=== PATIENT | male | born 1965 | race Two or more races ===

== ENCOUNTER 2021-08-16 11:24 | Inpatient (IN) | payer MEDICAID, OTHER ==
[~2021-08-16] VITALS: Ht 167.6 cm; Wt 37.7 kg
[2021-08-16] MEDS ORDERED: cefTRIAXone 1GM/50ML D5W 50 ML IV ONE (11:45)
[2021-08-16] MEDS ORDERED: ACETAMINOPHEN 325 MG TAB PO ONE (11:49)
[2021-08-16 12:34] LABS: Basophils # (auto) 0 10 ^3/uL (0-0.2); Eosinophils # (auto) 0 10 ^3/uL (0-0.8); Lymphocytes # (auto) 0.2 10 ^3/uL (0.4-5.4); Monocytes # (auto) 0.5 10 ^3/uL (0-1.3); Neutrophils # (auto) 2.3 10 ^3/uL (1.6-8.6)
[2021-08-16 12:38] LABS: Eosinophils % (auto) 0.1 % (0.0-7.0); Hematocrit 26.4 % (41.0-53.0); Hemoglobin 8.8 g/dL (13.5-17.5); Lymphocytes % (auto) 5.5 % (10.0-50.0); Mean Corpuscular Hemoglobin 24.7 pg (28.0-32.0); Mean Corpuscular Hgb Conc. 33.5 g/dL (32.0-36.0); Mean Corpuscular Volume 73.8 fL (80.0-100.0); Monocytes % (auto) 17.7 % (0.0-12.0); Neutrophils % (auto) 75.7 % (37.0-80.0); Nucleated Red Blood Cells % 0.5 %; Red Blood Cells 3.57 10^6/uL (4.5-5.90); Red Cell Distribution Width 23.5 % (11.8-14.3)
[2021-08-16 12:39] LABS: Albumin 2.5 g/dL (3.4-5.0); Calcium 8.2 mg/dL (8.5-10.1); Potassium 4.3 mmol/L (3.5-5.1)
[2021-08-16 12:42] LABS: BUN/Creatinine Ratio 12.9
[2021-08-16] MEDS ORDERED: ZINC SULFATE 220mg CAP or TAB PO ONE (12:45)
[2021-08-16] MEDS ORDERED: AZITHROMYCIN 500MG/ 250ML 250 ML IV ONE (12:45)
[2021-08-16 12:58] LABS: CRP High Sensitivity 3.9 mg/dL (< 0.3)
[2021-08-16 14:03] LABS: Bilirubin, Total 0.4 mg/dL (0.2-1.0); Total Protein 6.5 g/dL (6.4-8.2)
[2021-08-16] MEDS ORDERED: NITROGLYCERIN 0.4 MG SL TAB SL PRN ×2 (17:15→19:30)
[2021-08-16] MEDS ORDERED: MORPHINE SULFATE INJECTION 2 MG/ML SYRG IV PRN ×2 (17:15→19:30)
[2021-08-16] MEDS ORDERED: METOCLOPRAMIDE HCL 5MG/ml INJ 2ml VIAL IV PRN (19:30)
[2021-08-16] MEDS ORDERED: REMDESIVIR PER PHARMACY 0 ML IV SCH (19:30)
[2021-08-16] MEDS: SODIUM CHLORIDE 0.9% 1,000 ML IV SCH (19:30)
[2021-08-16] MEDS ORDERED: DOCUSATE SOD 100 MG CAP PO PRN (19:30)
[2021-08-16] MEDS ORDERED: ALUM & MAG HYDROX-SIMETH LIQ(MAALOX) 30 ML PO PRN (19:30)
[2021-08-16] MEDS ORDERED: PANTOPRAZOLE 40 MG/10 ML VIAL INJ IV ONE (19:45)
[2021-08-16] MEDS ORDERED: PROCHLORPERAZINE MALEATE 10 MG TAB PO PRN (19:45)
[2021-08-16] MEDS ORDERED: CEFEPIME 1 GM in SODIUM CHL 0.9% 50 ML IV ONE (20:30)
[2021-08-16 21:00] LABS: % Iron Saturation 6.9 % (20-55)
[2021-08-16 21:12] LABS: Thyroid Stimulating Hormone 1.68 uIU/mL (0.358-3.74)
[2021-08-16] MEDS: ENOXAPARIN SOD 40 MG/0.4 ML SYRINGE SC SCH (22:00)
[2021-08-16] MEDS: ALBUTEROL SULF HFA 90MCG INH 200DOSE IN PRN (22:35)
[2021-08-16] MEDS: BUDESONIDE (INHALATION) 180 MCG IH IN SCH (22:35)
[2021-08-16 22:40] LABS: Urine Bacteria NONE SEEN /hpf (None Seen); Urine Blood Negative /uL (Negative); Urine WBC 2 /hpf (0 - 3)
[2021-08-16] MEDS: ACETAMINOPHEN 500 MG TAB PO PRN (22:48)
[2021-08-16] MEDS ORDERED: REMDESIVIR 200 MG in NS 210ml LOADING DOSE ADULT IV ONE (23:00)
[2021-08-16 23:53] VITALS: BP 105/63
[2021-08-17] MEDS ORDERED: ONDA-188 PO (01:05)
[2021-08-17] MEDS ORDERED: MORP1TAB14 PO (01:05)
[2021-08-17 05:00] VITALS: BP 102/66
[2021-08-17] MEDS: CEFEPIME 1 GM in SODIUM CHL 0.9% 50 ML IV SCH ×3 (06:03→21:19)
[2021-08-17 06:17] LABS: Hemoglobin 7.7 g/dL (13.5-17.5)
[2021-08-17 06:20] LABS: Hematocrit 23.1 % (41.0-53.0); Mean Corpuscular Hemoglobin 24.5 pg (28.0-32.0); Mean Corpuscular Hgb Conc. 33.1 g/dL (32.0-36.0); Mean Corpuscular Volume 73.9 fL (80.0-100.0); Red Blood Cells 3.13 10^6/uL (4.5-5.90)
[2021-08-17 06:33] LABS: Red Cell Distribution Width 23.7 % (11.8-14.3)
[2021-08-17 06:34] LABS: White Blood Cell 1.9 10^3/uL (4.4-10.8)
[2021-08-17 06:36] LABS: Basophils % (manual) 0 (0.0-2.0); Blast Cells 0; Eosinophils % (manual) 0 (0-7); Metamyelocytes % 0; Myelocytes % 0; Promyelocytes % 0; Reactive Lymphocytes 0
[2021-08-17 06:58] LABS: Albumin 2.2 g/dL (3.4-5.0); BUN/Creatinine Ratio 17.8; Calcium 8.4 mg/dL (8.5-10.1)
[2021-08-17 07:00] LABS: Bilirubin, Total 0.3 mg/dL (0.2-1.0); Total Protein 5.6 g/dL (6.4-8.2)
[2021-08-17 08:00] LABS: Band Neutrophils % (manual) 5; Lymphocytes % (manual) 16 (10.0-50.0); Monocytes % (manual) 14 (0-12)
[2021-08-17 08:56] VITALS: BP 120/81
[2021-08-17] MEDS: DexAMETHasone SOD PHOS 10MG/1ML VIAL INJ IV SCH (09:59)
[2021-08-17] MEDS: IVERMECTIN 3 MG TAB PO SCH (09:59)
[2021-08-17] MEDS: ZINC SULFATE 220mg CAP or TAB PO SCH (09:59)
[2021-08-17] MEDS: CHOLECALCIFEROL (VITD3) 2,000 UNIT CAP/TAB PO SCH (10:00)
[2021-08-17] MEDS: ASCORBIC ACID 1,000 MG TAB PO SCH (10:00)
[2021-08-17] MEDS: ENOXAPARIN SOD 40 MG/0.4 ML SYRINGE SC SCH ×2 (10:00→21:19)
[2021-08-17] MEDS: BUDESONIDE (INHALATION) 180 MCG IH IN SCH ×2 (10:00→22:34)
[2021-08-17] MEDS ORDERED: PANTOPRAZOLE 40 MG/10 ML VIAL INJ IV SCH (10:00)
[2021-08-17] MEDS: SODIUM CHLORIDE 0.9% 1,000 ML IV SCH (12:10)
[2021-08-17 13:00] VITALS: BP 119/81
[2021-08-17] MEDS: ALBUTEROL SULF HFA 90MCG INH 200DOSE IN PRN ×2 (14:18→23:25)
[2021-08-17] MEDS: REMDESIVIR 100mg 100 MG in SODIUM CHL 0.9% 230 ML IV SCH (15:00)
[2021-08-17] MEDS ORDERED: guaiFENesin-DM 100/10mg/5ml SYR PO PRN (16:00)
[2021-08-17] MEDS ORDERED: SODIUM FERR GLUC 62.5MG/5ML 125 MG in SODIUM CHL 0.9% 100 ML IV ONE (16:15)
[2021-08-17 16:37] VITALS: BP 119/81
[2021-08-17] MEDS: ACETAMINOPHEN 500 MG TAB PO PRN (17:25)
[2021-08-17] MEDS: HYDROcodone-ACET 5/325MG TAB PO PRN (18:34)
[2021-08-17 22:00] VITALS: BP 108/74
[2021-08-18] MEDS: HYDROcodone-ACET 5/325MG TAB PO PRN ×3 (04:22→22:17)
[2021-08-18 05:00] VITALS: BP 114/76
[2021-08-18] MEDS: CEFEPIME 1 GM in SODIUM CHL 0.9% 50 ML IV SCH ×3 (06:01→21:17)
[2021-08-18 06:26] LABS: Hematocrit 24.2 % (41.0-53.0); Hemoglobin 8.2 g/dL (13.5-17.5); Mean Corpuscular Hemoglobin 24.6 pg (28.0-32.0); Mean Corpuscular Hgb Conc. 33.7 g/dL (32.0-36.0); Mean Corpuscular Volume 73.2 fL (80.0-100.0); Red Blood Cells 3.31 10^6/uL (4.5-5.90); White Blood Cell 2.9 10^3/uL (4.4-10.8)
[2021-08-18 06:32] LABS: Red Cell Distribution Width 23.1 % (11.8-14.3)
[2021-08-18 06:34] LABS: Basophils % (manual) 0 (0.0-2.0); Blast Cells 0; Eosinophils % (manual) 0 (0-7); Metamyelocytes % 0; Myelocytes % 0; Promyelocytes % 0; Reactive Lymphocytes 0
[2021-08-18 06:36] LABS: Albumin 2.2 g/dL (3.4-5.0); BUN/Creatinine Ratio 25.6; Calcium 8.3 mg/dL (8.5-10.1); Potassium 4.2 mmol/L (3.5-5.1)
[2021-08-18 06:39] LABS: Bilirubin, Total 0.4 mg/dL (0.2-1.0); Total Protein 5.4 g/dL (6.4-8.2)
[2021-08-18 08:17] LABS: Band Neutrophils % (manual) 2; Lymphocytes % (manual) 10 (10.0-50.0)
[2021-08-18 08:18] LABS: Monocytes % (manual) 32 (0-12)
[2021-08-18 08:52] VITALS: BP 123/80
[2021-08-18] MEDS: IVERMECTIN 3 MG TAB PO SCH (09:06)
[2021-08-18] MEDS: PANTOPRAZOLE 40 MG TAB PO SCH (09:06)
[2021-08-18] MEDS: DexAMETHasone SOD PHOS 10MG/1ML VIAL INJ IV SCH (09:06)
[2021-08-18] MEDS: CHOLECALCIFEROL (VITD3) 2,000 UNIT CAP/TAB PO SCH (09:06)
[2021-08-18] MEDS: ZINC SULFATE 220mg CAP or TAB PO SCH (09:06)
[2021-08-18] MEDS: ASCORBIC ACID 1,000 MG TAB PO SCH (09:06)
[2021-08-18] MEDS: ENOXAPARIN SOD 40 MG/0.4 ML SYRINGE SC SCH ×2 (09:07→21:17)
[2021-08-18] MEDS: BUDESONIDE (INHALATION) 180 MCG IH IN SCH ×2 (10:30→18:21)
[2021-08-18] MEDS: ALBUTEROL SULF HFA 90MCG INH 200DOSE IN PRN ×2 (10:30→18:21)
[2021-08-18] MEDS: SODIUM FERR GLUC 62.5MG/5ML 125 MG in SODIUM CHL 0.9% 100 ML IV SCH (11:18)
[2021-08-18 13:00] VITALS: BP 117/78
[2021-08-18 16:50] VITALS: BP 109/73
[2021-08-18] MEDS: REMDESIVIR 100mg 100 MG in SODIUM CHL 0.9% 230 ML IV SCH (17:05)
[2021-08-18] MEDS: LORazepam 0.5 MG TAB PO PRN (21:17)
[2021-08-18 22:00] VITALS: BP 125/77
[2021-08-19 05:00] VITALS: BP 112/67
[2021-08-19] MEDS: BUDESONIDE (INHALATION) 180 MCG IH IN SCH ×2 (05:51→20:40)
[2021-08-19] MEDS: ALBUTEROL SULF HFA 90MCG INH 200DOSE IN PRN ×2 (05:51→20:40)
[2021-08-19] MEDS: CEFEPIME 1 GM in SODIUM CHL 0.9% 50 ML IV SCH ×3 (05:53→22:18)
[2021-08-19 06:01] LABS: Albumin 2.4 g/dL (3.4-5.0); Calcium 8.6 mg/dL (8.5-10.1); Potassium 3.7 mmol/L (3.5-5.1)
[2021-08-19 06:04] LABS: BUN/Creatinine Ratio 22.8
[2021-08-19 06:06] LABS: Bilirubin, Total 0.4 mg/dL (0.2-1.0)
[2021-08-19 09:00] VITALS: BP 122/77
[2021-08-19] MEDS: IVERMECTIN 3 MG TAB PO SCH (10:23)
[2021-08-19] MEDS: ASCORBIC ACID 1,000 MG TAB PO SCH (10:23)
[2021-08-19] MEDS: DexAMETHasone SOD PHOS 10MG/1ML VIAL INJ IV SCH (10:23)
[2021-08-19] MEDS: ZINC SULFATE 220mg CAP or TAB PO SCH (10:23)
[2021-08-19] MEDS: PANTOPRAZOLE 40 MG TAB PO SCH (10:23)
[2021-08-19] MEDS: ENOXAPARIN SOD 40 MG/0.4 ML SYRINGE SC SCH ×2 (10:24→22:19)
[2021-08-19] MEDS: CHOLECALCIFEROL (VITD3) 2,000 UNIT CAP/TAB PO SCH (10:24)
[2021-08-19 11:00] LABS: Hepatitis A Ab IgM Negative
[2021-08-19 11:12] LABS: Hepatitis B Core IgM Negative
[2021-08-19] MEDS: SODIUM FERR GLUC 62.5MG/5ML 125 MG in SODIUM CHL 0.9% 100 ML IV SCH (12:00)
[2021-08-19] MEDS: HYDROcodone-ACET 5/325MG TAB PO PRN ×2 (12:14→21:15)
[2021-08-19 13:00] VITALS: BP 124/71
[2021-08-19 13:26] LABS: Hepatitis C Antibody Reactive (Negative)
[2021-08-19 16:56] VITALS: BP 116/79
[2021-08-19] MEDS ORDERED: ASCO10003 PO (19:49)
[2021-08-19] MEDS ORDERED: PANT40T PO (19:49)
[2021-08-19] MEDS ORDERED: ZINC220T6 PO (19:49)
[2021-08-19] MEDS ORDERED: ALBUAER3 IN (19:49)
[2021-08-19] MEDS ORDERED: CHOL1CAP47 PO (19:49)
[2021-08-19] MEDS ORDERED: DEX4T PO (19:49)
[2021-08-19] MEDS: REMDESIVIR 100mg 100 MG in SODIUM CHL 0.9% 230 ML IV SCH (20:38)
[2021-08-19 22:00] VITALS: BP 113/70
[2021-08-19] MEDS: MORPHINE SULFATE INJECTION 2 MG/ML SYRG IV PRN (23:43)
[2021-08-20] MEDS: LORazepam 0.5 MG TAB PO PRN (03:34)
[2021-08-20 05:00] VITALS: BP 115/73
[2021-08-20] MEDS: CEFEPIME 1 GM in SODIUM CHL 0.9% 50 ML IV SCH ×3 (05:43→21:09)
[2021-08-20 05:53] LABS: Hemoglobin 8.1 g/dL (13.5-17.5); White Blood Cell 5.1 10^3/uL (4.4-10.8)
[2021-08-20 06:04] LABS: Hematocrit 24.3 % (41.0-53.0); Mean Corpuscular Hemoglobin 24.8 pg (28.0-32.0); Mean Corpuscular Hgb Conc. 33.3 g/dL (32.0-36.0); Mean Corpuscular Volume 74.4 fL (80.0-100.0); Red Blood Cells 3.27 10^6/uL (4.5-5.90)
[2021-08-20 06:15] LABS: Basophils % (manual) 0 (0.0-2.0); Blast Cells 0; Eosinophils % (manual) 0 (0-7); Myelocytes % 0; Promyelocytes % 0; Reactive Lymphocytes 0
[2021-08-20 06:44] LABS: BUN/Creatinine Ratio 22.6; Calcium 8.7 mg/dL (8.5-10.1)
[2021-08-20 07:05] LABS: Albumin 2.5 g/dL (3.4-5.0); Bilirubin, Total 0.4 mg/dL (0.2-1.0); Total Protein 6.3 g/dL (6.4-8.2)
[2021-08-20 07:56] LABS: Band Neutrophils % (manual) 8; Lymphocytes % (manual) 11 (10.0-50.0); Metamyelocytes % 2; Monocytes % (manual) 21 (0-12)
[2021-08-20 09:00] VITALS: BP 103/57
[2021-08-20] MEDS: DexAMETHasone SOD PHOS 10MG/1ML VIAL INJ IV SCH (09:30)
[2021-08-20] MEDS: ZINC SULFATE 220mg CAP or TAB PO SCH (09:30)
[2021-08-20] MEDS: ENOXAPARIN SOD 40 MG/0.4 ML SYRINGE SC SCH ×2 (09:31→21:09)
[2021-08-20] MEDS: PANTOPRAZOLE 40 MG TAB PO SCH (09:31)
[2021-08-20] MEDS: CHOLECALCIFEROL (VITD3) 2,000 UNIT CAP/TAB PO SCH (09:31)
[2021-08-20] MEDS: IVERMECTIN 3 MG TAB PO SCH (09:31)
[2021-08-20] MEDS: ASCORBIC ACID 1,000 MG TAB PO SCH (09:31)
[2021-08-20] MEDS: HYDROcodone-ACET 5/325MG TAB PO PRN ×2 (09:32→20:11)
[2021-08-20] MEDS: BUDESONIDE (INHALATION) 180 MCG IH IN SCH ×2 (10:00→20:25)
[2021-08-20] MEDS: ALBUTEROL SULF HFA 90MCG INH 200DOSE IN PRN ×2 (10:42→20:25)
[2021-08-20] MEDS: SODIUM FERR GLUC 62.5MG/5ML 125 MG in SODIUM CHL 0.9% 100 ML IV SCH (10:50)
[2021-08-20 13:00] VITALS: BP 116/77
[2021-08-20 16:56] VITALS: BP 111/77
[2021-08-20] MEDS: REMDESIVIR 100mg 100 MG in SODIUM CHL 0.9% 230 ML IV SCH (17:58)
[2021-08-20] MEDS ORDERED: FER325T PO (18:07)
[2021-08-20 21:57] VITALS: BP 105/71
[2021-08-21] MEDS: MORPHINE SULFATE INJECTION 2 MG/ML SYRG IV PRN (00:20)
[2021-08-21 04:39] VITALS: BP 119/75
[2021-08-21] MEDS: CEFEPIME 1 GM in SODIUM CHL 0.9% 50 ML IV SCH ×2 (05:52→13:43)
[2021-08-21 09:00] VITALS: BP 117/75
[2021-08-21] MEDS: PANTOPRAZOLE 40 MG TAB PO SCH (09:31)
[2021-08-21] MEDS: IVERMECTIN 3 MG TAB PO SCH (09:31)
[2021-08-21] MEDS: DexAMETHasone SOD PHOS 10MG/1ML VIAL INJ IV SCH (09:31)
[2021-08-21] MEDS: ZINC SULFATE 220mg CAP or TAB PO SCH (09:31)
[2021-08-21] MEDS: ENOXAPARIN SOD 40 MG/0.4 ML SYRINGE SC SCH (09:32)
[2021-08-21] MEDS: ASCORBIC ACID 1,000 MG TAB PO SCH (09:32)
[2021-08-21] MEDS: CHOLECALCIFEROL (VITD3) 2,000 UNIT CAP/TAB PO SCH (09:32)
[2021-08-21] MEDS: BUDESONIDE (INHALATION) 180 MCG IH IN SCH (09:47)
[2021-08-21] MEDS: ALBUTEROL SULF HFA 90MCG INH 200DOSE IN PRN (09:47)
[2021-08-21] MEDS: SODIUM FERR GLUC 62.5MG/5ML 125 MG in SODIUM CHL 0.9% 100 ML IV SCH (10:13)
[2021-08-21 13:00] VITALS: BP 107/74
[2021-08-21] MEDS: HYDROcodone-ACET 5/325MG TAB PO PRN (14:07)
[2021-08-21 17:00] VITALS: BP 105/74
== END 2021-08-21 17:45 | disposition home or self-care (01) | DRG 137 ==
LOC: ER 11:24 → TELE 17:11 → TELE-EAST 23:21
PROVIDERS: ADMIT Hospitalist; ATTEND Internal Medicine
PROC: XW033E5 Introduction of Remdesivir Anti-infective into Peripheral Vein, Percutaneous Approach, New Technology Group 5 (ICD-10-PCS; principal; 2021-08-16)
DX: U07.1 COVID-19 (principal); J96.01 Acute respiratory failure with hypoxia; J12.82 Pneumonia due to coronavirus disease 2019; E43 Unspecified severe protein-calorie malnutrition; D61.810 Antineoplastic chemotherapy induced pancytopenia; D89.839 Cytokine release syndrome, grade unspecified; D50.9 Iron deficiency anemia, unspecified; F12.90 Cannabis use, unspecified, uncomplicated; F41.9 Anxiety disorder, unspecified; T45.1X5A Adverse effect of antineoplastic and immunosuppressive drugs, initial encounter; Y92.89 Other specified places as the place of occurrence of the external cause; Z85.71 Personal history of Hodgkin lymphoma; Z23 Encounter for immunization; Z68.20 Body mass index [BMI] 20.0-20.9, adult
CPT/HCPCS: 36415; 71045; 76705; 80053; 80074; 81001; 82270; 82306; 82728; 83036; 83540; 83550; 83605; 83615; 83735; 83880; 84443; 84484; 85007; 85025; 85027; 85379; 86141; 86850; 86900; 86901; 87040; 87086; 87426; 93005; 94640; 96365; 96367; 96368; 96375; 99291; C9113; G0378; J0696; J1100